=== PATIENT | female | born 1970 | race Caucasian/White ===

== ENCOUNTER → 2024-01-25 07:08 | Outpatient (REF) | payer BC, SELFPAY ==
[2024-01-25 07:59] LABS: % Basophils 1.6 % (0-2); % Eosinophils 3.5 % (0-6); % Immature Granulocytes 0.4 % (0-0.5); % Lymphocytes 23.6 % (20.5-51.1); % Monocytes 9.6 % (1.7-9.3); % Neutrophils 61.3 % (42.2-75.2); Absolute Basophils 0.1 10^3/uL (0-0.2); Absolute Eosinophils 0.2 10^3/uL (0-0.7); Absolute Lymphocytes 1.2 10^3/uL (1.2-3.4); Absolute Monocytes 0.5 10^3/uL (0.1-0.6); Absolute Neutrophils 3.1 10^3/uL (1.4-6.5); Hematocrit 40.3 % (37.0-47.0); Hemoglobin 13.8 g/dL (12.0-16.0); Mean Corp Hgb Conc. 34.2 g/dL (33.0-37.0); Mean Corpuscular Hgb 29.6 pg (27.0-31.0); Mean Corpuscular Volume 86.3 fL (81.0-99.0); Mean Platelet Volume 9.5 fL (7.4-10.4); Nucleated Red Blood Cells % 0 %; Platelet Count 247 10^3/uL (130-400); Red Blood Cell Count 4.67 10^6/uL (4.20-5.40); Red Cell Dist. Width 13.2 % (11.5-14.5); White Blood Cell Count 5.1 10^3/uL (4.8-10.8)
[2024-01-25 08:31] LABS: ALT (SGPT) 29 U/L (0-35); AST (SGOT) 24 U/L (14-36); Albumin 4.2 g/dl (3.5-5.0); Alkaline Phosphatase 92 U/L (38-126); Blood Urea Nitrogen 20 mg/dl (7-17); Calcium 9.4 mg/dl (8.4-10.2); Carbon Dioxide 23 mmol/L (22-30); Chloride 105 mmol/L (98-107); Glucose 96 mg/dl (70-99); HDL Cholesterol 38 mg/dl; LDL Cholesterol, Calculated 150 mg/dl; Potassium 4.6 mmol/L (3.5-5.1); Sodium 143 mmol/L (135-145); Total Bilirubin 0.6 mg/dl (0.2-1.3); Total Cholesterol 228 mg/dl (50-199); Total Protein 7.3 g/dl (6.3-8.2); Triglyceride 202 mg/dl (10-149); Very Low Density Lipoprotein 40 mg/dl (0-30); eGFR > 60.00
[2024-01-25 09:01] LABS: TSH Reflex To Free T4 2.14 uIU/ml (0.47-4.68)
== END ==
LOC: REG 07:08
PROVIDERS: ATTENDING PHYSICIAN Family Medicine
DX: E03.9 Hypothyroidism, unspecified (principal)
CPT/HCPCS: 36415; 80053; 80061; 84443; 85025

== ENCOUNTER → 2024-03-08 06:24 | Day surgery (SDC) | payer BC, SELFPAY | LOC: GI 06:24 | PROVIDERS: ATTENDING PHYSICIAN Internal Medicine; FAMILY PHYSICIAN Family Medicine | DX: R12 Heartburn (principal); R05.3 Chronic cough; K44.9 Diaphragmatic hernia without obstruction or gangrene; K22.89 Other specified disease of esophagus; K21.00 Gastro-esophageal reflux disease with esophagitis, without bleeding; K29.50 Unspecified chronic gastritis without bleeding | CPT/HCPCS: 43239; 88305; 88342 ==

== ENCOUNTER → 2024-04-09 15:42 | Outpatient (REF) | payer BC, SELFPAY | LOC: WDC 15:42 | PROVIDERS: ATTENDING PHYSICIAN Family Medicine | DX: Z12.31 Encounter for screening mammogram for malignant neoplasm of breast (principal) | CPT/HCPCS: 77063; 77067 ==

== ENCOUNTER → 2024-04-26 11:04 | Outpatient (REF) | payer BC, SELFPAY | LOC: RAD 11:04 | PROVIDERS: ATTENDING PHYSICIAN Family Medicine | DX: R10.31 Right lower quadrant pain (principal) | CPT/HCPCS: 74177; Q9967 ==

== ENCOUNTER → 2024-06-13 07:23 | Outpatient (REF) | payer BC, SELFPAY | LOC: RAD 07:23 | PROVIDERS: ATTENDING PHYSICIAN Internal Medicine | DX: R05.3 Chronic cough (principal) | CPT/HCPCS: 71046 ==

== ENCOUNTER → 2024-06-14 12:14 | Outpatient (REF) | payer BC, SELFPAY | LOC: DHSLP 12:14 | PROVIDERS: ATTENDING PHYSICIAN Internal Medicine | DX: G47.33 Obstructive sleep apnea (adult) (pediatric) (principal); R09.02 Hypoxemia | CPT/HCPCS: 95800 ==

== ENCOUNTER → 2025-02-06 07:22 | Outpatient (REF) | payer BC, SELFPAY ==
[2025-02-06 08:16] LABS: Urine Character Clear (Clear)
[2025-02-06 08:20] LABS: Hematocrit 43.8 % (37.0-47.0); Hemoglobin 14.3 g/dL (12.0-16.0); Mean Corp Hgb Conc. 32.6 g/dL (33.0-37.0); Mean Corpuscular Volume 93.2 fL (81.0-99.0); Nucleated Red Blood Cells % 0 %; Platelet Count 244 10^3/uL (130-400); Red Cell Dist. Width 13.2 % (11.5-14.5)
[2025-02-06 08:37] LABS: Urine Squamous Cell >30 /LPF (Few)
[2025-02-06 08:38] LABS: Urine Red Blood Cell 0-2 /HPF (0-2)
[2025-02-06 08:51] LABS: ALT (SGPT) 41 U/L (0-35); AST (SGOT) 28 U/L (14-36); Albumin 4.4 g/dl (3.5-5.0); Alkaline Phosphatase 89 U/L (38-126); Blood Urea Nitrogen 16 mg/dl (7-17); Calcium 9.5 mg/dl (8.4-10.2); Carbon Dioxide 26 mmol/L (22-30); Chloride 106 mmol/L (98-107); Glucose 98 mg/dl (70-99); HDL Cholesterol 35 mg/dl; LDL Cholesterol, Calculated 139 mg/dl; Potassium 4.4 mmol/L (3.5-5.1); Sodium 140 mmol/L (135-145); Total Protein 7.4 g/dl (6.3-8.2); Very Low Density Lipoprotein 45 mg/dl (0-30); eGFR > 60.00
[2025-02-06 09:46] LABS: Glycohemoglobin (HgbA1c) 5.6 % (4.0-5.9)
== END ==
LOC: REG 07:22
PROVIDERS: ATTENDING PHYSICIAN Family Medicine
DX: E03.9 Hypothyroidism, unspecified (principal); E66.01 Morbid (severe) obesity due to excess calories; R31.0 Gross hematuria; R73.9 Hyperglycemia, unspecified
CPT/HCPCS: 36415; 80053; 80061; 81003; 81015; 83036; 84443; 85025; 87086